=== PATIENT | female | born 1965 | race Caucasian/White ===

== ENCOUNTER 2018-05-27 08:45 | Outpatient (CLI) | payer MEDICARE ==
[~2018-05-27] VITALS: Ht 162.6 cm; Wt 102.5 kg
[~2018-05-27 08:45] MED LIST: AMLO10TA4 PO; CARV12.543 PO; CYCL-259 PO; FURO80TA77 PO; HEPARIN 5,000 UNITS/ML, 1ML ONE; LEVO200T PO; MORP15TA3 PO; OXYC-307 PO
[2018-05-27] MEDS ORDERED: SODIUM CHLORIDE 0.9% 1,000 ML IV SCH (09:48)
[2018-05-27] MEDS ORDERED: INSU100V8 SQ (09:53)
[2018-05-27] MEDS ORDERED: ATOR80TA PO (09:53)
[2018-05-27] MEDS ORDERED: LIDOCAINE-MPF 1%, 2ML INFIL ONE (10:00)
[2018-05-27] MEDS ORDERED: HEPARIN 1,000 UNITS/ML, 10ML ONE (10:18)
[2018-05-27 10:24] VITALS: BP 170/100
[2018-05-27] MEDS ORDERED: CARVEDILOL 12.5 MG TABLET PO ONE (10:30)
== END 2018-05-27 23:59 | disposition home or self-care (01) ==
LOC: OUT 08:45 → CLISVCS 08:45 → EDSTATUS 13:00 → CLISVCS 23:59
PROVIDERS: ATTEND Surgery Vascular Surgery
DX: N18.6 End stage renal disease (principal); Z53.9 Procedure and treatment not carried out, unspecified reason; Z88.0 Allergy status to penicillin
CPT/HCPCS: 36415; 80047; 93005; J7030; J1644; J3490

== ENCOUNTER 2018-08-12 11:45 | Day surgery (SDC) | payer MEDICARE ==
[~2018-08-12] VITALS: Ht 162.6 cm; Wt 102.4 kg
[~2018-08-12 11:45] MED LIST changes: +ATOR80TA PO; +HEPARIN 1,000 UNITS/ML, 10ML ONE; -HEPARIN 5,000 UNITS/ML, 1ML ONE; +INSU100V8 SQ; +PROTAMINE SULFATE 10 MG/ML, 5ML ONE; +THROMBIN 20,000 UNIT VIAL TP ONE
[2018-08-12] MEDS ORDERED: SODIUM CHLORIDE 0.9% 1,000 ML IV SCH (12:26)
[2018-08-12 12:32] VITALS: BP 143/83
[2018-08-12] MEDS ORDERED: PROPOFOL 50 ML ONE (14:12)
[2018-08-12] MEDS ORDERED: FENTANYL PF 250 MCG/5ML ONE (14:13)
[2018-08-12] MEDS ORDERED: MIDAZOLAM 1 MG/ML, 2ML ONE (14:13)
[2018-08-12] MEDS ORDERED: PROPOFOL 10 MG/ML, 50ML ONE (14:27)
[2018-08-12] MEDS ORDERED: ONDANSETRON 2MG/ML, 2ML ONE ×2 (14:27→16:20)
[2018-08-12] MEDS ORDERED: CEFAZOLIN 1,000 MG ONE (14:27)
[2018-08-12] MEDS ORDERED: DIPHENHYDRAMINE 50 MG/ML, 1ML IVPush PRN (15:00)
[2018-08-12] MEDS ORDERED: hydrALAzine 20 MG/ML, 1ML IV PRN (15:00)
[2018-08-12] MEDS ORDERED: ACETAMINOPHEN 325 MG TABLET PO PRN (15:00)
[2018-08-12] MEDS ORDERED: EPHEDRINE 50 MG/ML, 1ML IM PRN (15:00)
[2018-08-12] MEDS ORDERED: ONDANSETRON ODT 8 MG PO PRN (15:00)
[2018-08-12] MEDS ORDERED: DIAZEPAM 5 MG/ML, 2ML IVPush PRN (15:00)
[2018-08-12] MEDS ORDERED: MORPHINE SULFATE 4 MG/ML, 1ML IVPush PRN (15:00)
[2018-08-12] MEDS ORDERED: EPHEDRINE 50 MG/ML, 1ML IVPush PRN (15:00)
[2018-08-12] MEDS ORDERED: PROMETHAZINE 25 MG/ML, 1ML IV PRN (15:00)
[2018-08-12] MEDS ORDERED: OXYcodone 5 MG/5 ML ORAL.SOL UDC PO PRN (15:00)
[2018-08-12] MEDS ORDERED: FENTANYL PF 100 MCG/2ML IV PRN (15:00)
[2018-08-12] MEDS ORDERED: MIDAZOLAM 1 MG/ML, 2ML IV PRN (15:00)
[2018-08-12] MEDS ORDERED: ONDANSETRON 2MG/ML, 2ML IV PRN (15:00)
[2018-08-12] MEDS ORDERED: FENTANYL PF 100 MCG/2ML ONE (16:41)
[2018-08-12] MEDS ORDERED: OXYcodone 5 MG/5 ML ORAL.SOL UDC ONE (16:42)
== END 2018-08-12 18:45 | disposition home or self-care (01) ==
LOC: OUT 11:45
PROVIDERS: ATTEND Surgery Vascular Surgery
DX: T82.590A Other mechanical complication of surgically created arteriovenous fistula, initial encounter (principal); T82.49XA Other complication of vascular dialysis catheter, initial encounter; E11.22 Type 2 diabetes mellitus with diabetic chronic kidney disease; I12.0 Hypertensive chronic kidney disease with stage 5 chronic kidney disease or end stage renal disease; N18.6 End stage renal disease; E78.00 Pure hypercholesterolemia, unspecified; E03.9 Hypothyroidism, unspecified; J45.909 Unspecified asthma, uncomplicated; Z89.512 Acquired absence of left leg below knee; Z90.710 Acquired absence of both cervix and uterus; Z90.49 Acquired absence of other specified parts of digestive tract; Z98.890 Other specified postprocedural states; Z79.4 Long term (current) use of insulin; Z79.890 Hormone replacement therapy; Z79.891 Long term (current) use of opiate analgesic; Z79.899 Other long term (current) drug therapy; Z88.8 Allergy status to other drugs, medicaments and biological substances; Z88.0 Allergy status to penicillin; Z83.3 Family history of diabetes mellitus; Y83.8 Other surgical procedures as the cause of abnormal reaction of the patient, or of later complication, without mention of misadventure at the time of the procedure
CPT/HCPCS: 36415; 36832; 80047; C1768; C1769; J0690; J1642; J1644; J2250; J2405; J2704; J2720; J3010

== ENCOUNTER 2018-10-07 07:05 | Day surgery (SDC) | payer MEDICARE, MEDICAID ==
[~2018-10-07] VITALS: Ht 162.6 cm; Wt 99.5 kg
[2018-10-07 08:30] VITALS: BP 158/94
== END 2018-10-07 16:45 | disposition home or self-care (01) ==
LOC: OUT 07:05
PROVIDERS: ATTEND Surgery Vascular Surgery
DX: E11.22 Type 2 diabetes mellitus with diabetic chronic kidney disease (principal); I12.0 Hypertensive chronic kidney disease with stage 5 chronic kidney disease or end stage renal disease; N18.6 End stage renal disease; T82.590A Other mechanical complication of surgically created arteriovenous fistula, initial encounter; E66.9 Obesity, unspecified; Z79.4 Long term (current) use of insulin; Z79.890 Hormone replacement therapy; Z79.899 Other long term (current) drug therapy; Z88.0 Allergy status to penicillin; Z88.8 Allergy status to other drugs, medicaments and biological substances; Z89.512 Acquired absence of left leg below knee; Y83.8 Other surgical procedures as the cause of abnormal reaction of the patient, or of later complication, without mention of misadventure at the time of the procedure
CPT/HCPCS: 36415; 36581; 36821; 71045; 80047; 82962; 93005; C1751; J0690; J1644; J2250; J2405; J2704; J2720; J3010; J7030; J1815